=== PATIENT | male | born 1985 | race Caucasian/White ===

== ENCOUNTER 2018-05-25 23:41 | Emergency (ER) | payer BC, OTHER ==
[2018-05-26 01:15] LABS: HIV (1/2) Antibody/Antigen Non-Reactive (NonReactive); Hep C IgG Ab Non-Reactive (NonReactive); Hep C Index 0.11 S/CO (0-0.79)
[2018-05-26 01:59] LABS: HBSAB Concentration 116.63 mIU/mL; Hep B Surf AB Reactive (NonReactive)
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
== END 2018-05-26 01:03 | disposition home or self-care (01) ==
LOC: ERS 23:41
DX: S51.851A Open bite of right forearm, initial encounter (principal); M25.512 Pain in left shoulder; Y04.1XXA Assault by human bite, initial encounter
CPT/HCPCS: 36415; 86706; 86803; 87389

== ENCOUNTER 2018-09-20 11:01 | Outpatient (CLI) | payer BC ==
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
== END 2018-09-20 11:02 | disposition home or self-care (01) ==
LOC: BICRAD 11:01
PROVIDERS: ATTEND Family Medicine
DX: M54.5 Low back pain (principal); R10.2 Pelvic and perineal pain
CPT/HCPCS: 72170

== ENCOUNTER 2020-04-26 11:05 | Outpatient (CLI) | payer BC | END 2020-04-26 11:06 | disposition home or self-care (01) | LOC: CTENTCT 11:05 | PROVIDERS: ATTEND Otolaryngology Plastic Surgery within the Head & Neck | DX: J32.9 Chronic sinusitis, unspecified (principal) | CPT/HCPCS: 70486 ==